=== PATIENT | male | born 2000 | race Two or more races ===

== ENCOUNTER 2024-09-26 10:40 | Emergency (ER) | payer MEDICAID, SELFPAY ==
[2024-09-26 10:41] VITALS: BMI 21.1
[2024-09-26 10:57] VITALS: BP 132/81; PULSE 55; RESP 19; TEMP 36.8; O2SAT 97
--- NOTE | 2024-09-26 11:00 | XR_ITS ---
Examination: Shoulder,right, 3 views Technique: Shoulder AP internal rotation, AP external rotation, Y view shoulder, 3 views Exam date and time :September 26, 2024, 11:03 AM Indications: Soccer injury to the shoulder today, shoulder pain. Findings: No acute fracture. No shoulder dislocation. No acute joint separation Impression: No acute fracture
[2024-09-26] MEDS: HYDROcodone/APAP 5/325 TABLET 1 TAB PO (11:09)
[2024-09-26] MEDS: KETOROLAC INJ 60 MG/2 ML VIAL 30 MG IM (11:10)
--- NOTE | 2024-09-26 11:37 | EDNOTE_ITS ---
Upper Extremity Injury RME/HPI General Chief Complaint: Extremity Injury, Upper Stated Complaint: FELL ON MY R SHOULDER PLAYING SOCCER Time Seen by Provider: 09/26/24 10:46 Arrival date/time: 09/26/24 10:40 This is a case of 34-year-old male with no medical history came in in the emergency room due to right shoulder pain history of present illness started today when the patient was playing soccer and accidentally fell and landed on his right shoulder sustaining pain and swelling patient denies any head neck chest or abdomen injury no loss of consciousness denies any numbness weakness or tingling sensation Limitations: no limitations Related Data Previous Rx's ?Medication ?Instructions ?Recorded ibuprofen 800 mg tablet 800 mg PO Q8H PRN pain #30 t abs 09/26/24 Allergies Allergy/AdvReac Type Severity Reaction Status Date / Time No Known Allergies Allergy Verified 09/26/24 10:43 Review of Systems Review of Systems Systems Reviewed: All systems reviewed, normal except as documented Constitutional Constitutional: Reports system reviewed and no additional complaints, except as documented and Reports as per HPI ENT Ears, Nose, Mouth, and Throat: Denies neck pain Cardiovascular Cardiovascular: Reports system reviewed and no additional complaints, except as documented and Reports as per HPI Respiratory Respiratory: Reports system reviewed and no additional complaints, except as documented and Reports as per HPI Gastrointestinal Gastrointestinal: Reports system reviewed and no additional complaints, except as documented and Reports as per HPI Genitourinary Genitourinary: Reports system reviewed and no additional complaints, except as documented and Reports as per HPI Musculoskeletal Musculoskeletal: Reports system reviewed and no additional complaints, except as documented, Reports as per HPI, Denies abnormal gait, Denies arthralgias, Denies atrophy, Denies back pain, Denies deformity, Denies joint swelling, Denies limited range of motion, Denies loss of height, Denies muscle cramps, Denies muscle weakness, Denies myalgias, Denies neck pain, Denies numbness, Denies radiating pain into limb, Denies stiffness and Denies tingling Neurologic Neurologic: Reports system reviewed and no additional complaints, except as documented, Reports as per HPI, Denies abnormal gait, Denies numbness and Denies tingling Past Medical History Social History SMOKING STATUS: Never smoker ED Exam General Limitations: Present no limitations General appearance: Present alert, in no apparent distress and other (Patient is awake alert oriented not in distress nontoxic looking well-hydrated well- nourished) Head Head exam: Present atraumatic, normocephalic and normal inspection Eye Eye exam: Present normal appearance, PERRL and EOMI ENT ENT exam: Present normal exam, normal oropharynx and mucous membranes moist Neck Neck exam: Present normal inspection, full ROM and trachea midline; Absent tenderness, meningismus, lymphadenopathy or thyromegaly Chest Chest inspection: Present normal inspection and symmetric chest wall rise; Absent tenderness or rash Respiratory Respiratory exam: Present normal lung sounds bilaterally; Absent respiratory distress, wheezes, stridor, accessory muscle use or prolonged expiratory phase Cardiovascular Cardiovascular exam: Present regular rate, normal rhythm and normal heart sounds; Absent bradycardia, tachycardia, irregular rhythm, systolic murmur or diastolic murmur Abdominal Exam Abdominal exam: Present soft and normal bowel sounds Extremities Exam Extremities exam: Present normal inspection and full ROM Expanded Upper Extremity Exam Shoulder exam: Present tenderness (Moderate tenderness on the shoulder joint), swelling (Mild swelling) and other (ROM limited due to pain pulses were full and equal capillary refill less than 2 seconds sensory intact reflex intact); Absent abrasion, laceration, ecchymosis, deformity, crepitus, dislocation, erythema or tenderness over AC joint Arm exam: Present normal inspection and full ROM; Absent tenderness or swelling Elbow exam: Present normal inspection and full ROM; Absent tenderness or swelling Forearm/Wrist exam: Present normal inspection and full ROM; Absent tenderness or swelling Hand exam: Present normal inspection and full ROM; Absent tenderness or swelling Back Exam Back exam: Present normal inspection and full ROM Neurological Exam Neurological exam: Present alert, oriented X3, CN II-XII intact, normal gait, reflexes normal and other (Awake alert oriented x 4 no focal deficit GCS 15/15 steady gait); Absent motor sensory deficit Psychiatric Psychiatric exam: Present normal affect and normal mood Skin Skin exam: Present warm, dry, intact and normal color Course Quality Measures none Orders Category Date Time Status sling [Splint / Immobilizer] STAT Care 09/26/24 11:00 Active XR shoulder RT min 2V Stat Exams 09/26/24 11:00 Completed HYDROcodone*/APAP 5/325 [Mills 5/325] Med 09/26/24 11:00 Discontinued 1 tab PO X1 ONE Ketorolac Inj [Toradol Inj] Med 09/26/24 11:00 Discontinued 30 mg IM X1 ONE Vital Signs Vital signs: Vital Signs Temperature 98.3 F 09/26/24 10:57 Pulse Rate 55 L 09/26/24 10:57 Respiratory Rate 19 09/26/24 10:57 Blood Pressure 132/81 H 09/26/24 10:57 Pulse Oximetry (%) 97 09/26/24 10:57 Oxygen Delivery Method Room Air 09/26/24 10:57 Patient oxygen saturation is 97% on room air normal Extremity Injury MDM Narrative MDM Narrative:: This is a case of 34-year-old male with no medical history came in in the emergency room due to right shoulder pain history of present illness started today when the patient was playing soccer and accidentally fell and landed on his right shoulder sustaining pain and swelling patient denies any head neck chest or abdomen injury no loss of consciousness denies any numbness weakness or tingling sensation physical examination patient is awake alert oriented not in distress nontoxic looking GCS 15/15 steady gait no focal deficit patient noted to have moderate tenderness on the right shoulder with mild swelling no crepitation no deformity no redness ROM is limited due to pain neurovascular intact x-ray showed no fracture no dislocation sling was applied patient tolerated well neurovascular intact after 30 minutes patient is able to move his right shoulder pain was improved patient will follow-up with PCP in 2 days for reevaluation RICE treatment will continue by the patient at home patient was advised for any worsening symptoms or any emergent concern return precaution in the ER was advised Patient was discharged with comfortable condition walking with stable gait. Patient verbalized no further complains explained diagnosis and answered patient question. Patient is comfortable with the proposed management plan including the need to follow up with his/her primary care physician and any specialist if applicable Discussed patient for any urgent condition or worsening sx, He/She needed to go to emergency room immediately or call 911. Patient acknowledge the responsibility to follow up as instructed and to monitor her/his symptoms. For any persistence of the symptoms for more than 3-5 days return precaution advised. Discussed the result of the test and was given printed discharge instruction Patient data External records reviewed:: [facility] previous records Clinical information provided by:: patient Social determinants that could affect healthcare access:: none Patient has the following chronic illnesses:: None How is presenting disease/condition affected by chronic disease/condition?: no chronic disease Evaluation data The following diagnostics were reviewed and interpreted by me:: radiology exam(s) Lab and/or radiology exams considered but not ordered:: Reviewed Interpretation Summary: Reviewed Medications / Prescriptions Medications or Prescriptions considered but not ordered:: Given Medication administrations:: Medication Administration History Discontinued Medications Hydrocodone Bitart/Acetaminophen (Hydrocodone/Apap 5/325 Tablet) 1 tab PO X1 ONE Stop: 09/26/24 11:01 Last Admin: 09/26/24 11:09 Dose: 1 tab Documented By: Ketorolac Tromethamine (Ketorolac Inj 60 Mg/2 Ml Vial) 30 mg IM X1 ONE Stop: 09/26/24 11:01 Last Admin: 09/26/24 11:10 Dose: 30 mg Documented By: Given Consultations Consultation(s) initiated? (list below): No Diagnosis Upper Extremity Injury Differential Diagnosis: other (Older sprain shoulder dislocation shoulder fracture) Most likely diagnosis given after review of the tests above:: Shoulder sprain Admission Indicated Admission indicated?: not indicated Explain why admission is indicated or not indicated:: Not indicated Admission Request Was there a request for admission?: No Admission Attestation Admission request attestation: Not indicated Disposition Plan Disposition Plan: Discharge Discharge Attestation Discharge Attestation: The patient and all family members were given an opportunity to ask questions and understood the discharge instructions. Discharge instructions specifically effects, indications for sooner follow up or return to the emergency department, and the expected course of current diagnosis. Patient condition: Stable Discharge Plan Plan Patient Disposition: HOME (Self Care) Patient condition on transfer: Stable Prescriptions/Referrals Prescriptions/Med Rec: New ibuprofen 800 mg tablet 800 mg PO Q8H PRN (Reason: pain) Qty: 30 0RF Problem List Clinical Impression: Shoulder sprain Patient/Caregiver Discharge Instructions Education Materials: ED Shoulder Sprain, ED Sling, ED RICE Additional Instructions: Follow-up with your primary care physician in 2 days for reevaluation worsening symptoms or any emergent concerns such as numbness weakness tingling sensation return to the emergency room immediately or call 911 ice pack every 2 hours for 20 minutes for 24 hours then alternate with warm compress keep the sling in place until cleared by your primary care physician Print Language: Tamazight Stand Alone Forms: Aide Award Info., Patient Portal Info Letter PA/COLLECTION SYSTEMS WORKER Supervising Physician PA/MORTEZA Supervising Physician: Dr padilla
== END 2024-09-26 11:43 | disposition home or self-care (01) ==
LOC: SERX 11:27
PROVIDERS: Emergency Provider Emergency Medicine; PCP Physician Assistant
DX: S43.401A Unspecified sprain of right shoulder joint, initial encounter (principal); W19.XXXA Unspecified fall, initial encounter; Y93.66 Activity, soccer
CPT/HCPCS: 29105; 73030; 96372; 99283; J1885; A9270

== ENCOUNTER 2024-11-09 21:35 | Emergency (ER) | payer MEDICAID, SELFPAY ==
[2024-11-09 21:37] VITALS: BMI 22.7
--- NOTE | 2024-11-09 21:48 | XR_ITS ---
Examination: Fingers, left hand third digit 3 views Technique: AP, oblique, lateral views left hand third digit 3 views. Exam date and time: November 09, 2024 2155 hrs. Indications: Injury to the hand today with third digit pain. Findings: Flexion at the distal interphalangeal joint fourth digit No acute fracture No dislocation Impression: No acute fracture
[2024-11-09 22:38] VITALS: BP 123/74; PULSE 67; RESP 18; TEMP 37; O2SAT 97
--- NOTE | 2024-11-10 02:40 | PD.EDHAND ---
Upper Extremity Injury RME/HPI General Chief Complaint: Hand/Wrist Problems Stated Complaint: LEFT FINGER INJURY Time Seen by Provider: 11/09/24 23:00 Arrival date/time: 11/09/24 21:35 24M with no significant PMH presents to ED with L ring finger deformity after he accidentally hit it against a wall. Limitations: no limitations Related Data Previous Rx's ?Medication ?Instructions ?Recorded ibuprofen 800 mg tablet 800 mg PO Q8H PRN pain #30 tabs 09/26/24 Allergies Allergy/AdvReac Type Severity Reaction Status Date / Time No Known Allergies Allergy Verified 11/09/24 21:36 Review of Systems Review of Systems Systems Reviewed: All systems reviewed, normal except as documented Musculoskeletal Musculoskeletal: Reports as per HPI and Reports arthralgias Past Medical History Social History SMOKING STATUS: Never smoker ED Exam General Limitations: Present no limitations General appearance: Present alert and in no apparent distress Head Head exam: Present atraumatic Neck Neck exam: Present normal inspection, full ROM and trachea midline Chest Chest inspection: Present normal inspection and symmetric chest wall rise Extremities Exam Extremities exam: Present full ROM Expanded Upper Extremity Exam Hand exam: Present full ROM and deformity (L ring finger swan neck ) Psychiatric Psychiatric exam: Present normal affect and normal mood Skin Skin exam: Present warm, dry, intact and normal color Course Quality Measures none Orders Category Date Time Status Splint / Immobilizer STAT Care 11/09/24 23:01 Completed XR finger LT min 2V Stat Exams 11/09/24 21:48 Completed Vital Signs Vital signs: Vital Signs Temperature 98.6 F 11/09/24 22:38 Pulse Rate 67 11/09/24 22:38 Respiratory Rate 18 11/09/24 22:38 Blood Pressure 123/74 11/09/24 22:38 Pulse Oximetry (%) 97 11/09/24 22:38 Oxygen Delivery Method Room Air 11/09/24 22:38 O2 at 97% on RA and WNLs Extremity Injury MDM Narrative MDM Narrative:: 24M with no significant PMH presents to ED with L ring finger deformity after he accidentally hit it against a wall. Physical exam reveals mild L ring finger swan neck deformity. ROM intact. Patient is afebrile, calm, and alert. XR no fx. Given finger protector and prevocational/rehabilitation counselor. Patient data External records reviewed:: [facility] previous records Clinical information provided by:: patient Social determinants that could affect healthcare access:: none Patient has the following chronic illnesses:: none How is presenting disease/condition affected by chronic disease/condition?: no chronic disease Evaluation data The following diagnostics were reviewed and interpreted by me:: radiology exam(s) Lab and/or radiology exams considered but not ordered:: ordered Interpretation Summary: above Medications / Prescriptions Medications or Prescriptions considered but not ordered:: not ordered Medication administrations:: n/a Consultations Consultation(s) initiated? (list below): No Diagnosis Upper Extremity Injury Differential Diagnosis: sprain and strain of wrist, fracture of wrist, finger sprain, dislocation of finger, Colles' fracture and fracture of hand Most likely diagnosis given after review of the tests above:: finger sprain Admission Indicated Admission indicated?: not indicated Admission Request Was there a request for admission?: No Disposition Plan Disposition Plan: Discharge Discharge Attestation Discharge Attestation: The patient and all family members were given an opportunity to ask questions and understood the discharge instructions. Discharge instructions specifically effects, indications for sooner follow up or return to the emergency department, and the expected course of current diagnosis. Patient condition: Stable Discharge Plan Plan Patient Disposition: HOME (Self Care) Discharge Disposition comment: Stable Prescriptions/Referrals Prescriptions/Med Rec: No Action ibuprofen 800 mg tablet 800 mg PO Q8H PRN (Reason: pain) Qty: 30 0RF Problem List Clinical Impression: Finger sprain Patient/Caregiver Discharge Instructions Education Materials: ED Finger Sprain Additional Instructions: Please follow-up with PCP within 24-48 hours and return immediately if symptoms worsen. If problem persists, recommend outpatient PT and/or MRI follow-up. In the meantime, rest, use ice/heat, and/or compression. Print Language: Thai Stand Alone Forms: Patient Portal Info Letter LUCRECIA/AUDIO VISUAL DESIGN ENGINEER Supervising Physician LUCRECIA/MORTEZA Supervising Physician: Dr. Noel
== END 2024-11-09 23:14 | disposition home or self-care (01) ==
LOC: SERX 23:13
PROVIDERS: Emergency Provider Emergency Medicine; PCP Physician Assistant
DX: S63.613A Unspecified sprain of left middle finger, initial encounter (principal); W22.01XA Walked into wall, initial encounter
CPT/HCPCS: 73140; 99284